=== PATIENT | female | born 1985 | race African-American/Black ===

== ENCOUNTER 2016-12-18 06:54 | Emergency (ER) | payer OTHER ==
[~2016-12-18] VITALS: Ht 167.6 cm; Wt 86.2 kg
[2016-12-18] MEDS ORDERED: NKM (07:01)
[2016-12-18 07:04] VITALS: BP 117/74
[2016-12-18 07:12] VITALS: BP 117/74
--- NOTE | 2016-12-18 07:21 | Emergency Room Report ---
History of Present Illness General Chief Complaint: Puncture Wound Source: Patient Present Illness HPI Patient is an employee at [employer] she had used a butterfly needle to draw blood this morning from a patient, while she was cleaning up, she reports that she sustained a puncture wound in the left base of the middle finger distally She reports that she expressed a small amount of blood from the area Washed the area And presents for further evaluation Denies any other injury denies any fevers or chills Allergies: Coded Allergies: No Known Allergies (Unverified , 12/18/16) Patient History Past Medical History: see triage record Pertinent Family History: none Last Menstrual Period: Nov Reviewed Nursing Documentation: PMH: Agreed, PSxH: Agreed Nursing Documentation-PMH Past Medical History: No Stated History Review of Systems All Other Systems: negative except mentioned in HPI Physical Exam Vital Signs Date Time Temp Pulse Resp B/P (MAP) Pulse Ox O2 Delivery O2 Flow Rate FiO2 12/18/16 06:58 98.2 72 16 117/74 100 Room Air Sp02 EP Interpretation: reviewed, normal General Appearance: well appearing, no apparent distress Head: normocephalic, atraumatic Eyes: bilateral eye PERRL, bilateral eye EOMI ENT: normal voice Neck: full range of motion Musculoskeletal: normal inspection Neurologic: alert, oriented x3 Skin: other - Detailed evaluation of the base of the patient's finger was the injury occurred, does not reveal any obvious hematomas or bruising. The site of the injury is difficult to see clinically Lymphatic: no adenopathy Medical Decision Making Diagnostic Impression: Primary Impression: Puncture wound Additional Impression: health work needle stick ER Course Given that the patient did sustain a needle injury at work baseline blood work was initiated Patient has not high risk and was not placed on PEP. She is up-to-date with tetanus shot and other immunizations And requires close followup with worker's comp Labs Test 12/18/16 07:30 HIV (1&2) Antibody Rapid Negative (NEGATIVE) Last Vital Signs Date Time Temp Pulse Resp B/P (MAP) Pulse Ox O2 Delivery O2 Flow Rate FiO2 12/18/16 06:58 98.2 72 16 117/74 100 Room Air Status: unchanged Disposition: HOME, SELF-CARE Condition: Stable Patient Instructions: Puncture Wound, Needle Stick Injury, [id number] Additional Instructions: Followup's comp clinic next 2-3 days return with any concerns JAMEHDOR,ALI D.O. Dec 18, 2016 07:21
[2016-12-18 07:27] VITALS: BP 117/74
== END 2016-12-18 07:30 | disposition home or self-care (01) ==
LOC: EMR 07:25
DX: S61.233A Puncture wound without foreign body of left middle finger without damage to nail, initial encounter (principal); W46.0XXA Contact with hypodermic needle, initial encounter; Y93.F9 Activity, other caregiving; Y92.239 Unspecified place in hospital as the place of occurrence of the external cause; Y99.0 Civilian activity done for income or pay
CPT/HCPCS: 86703; 86803; 87517; 99282